=== PATIENT | male | born 1985 | race Caucasian/White ===

== ENCOUNTER 2017-06-24 15:21 | Emergency (ER) | payer OTHER ==
[~2017-06-24] VITALS: Ht 175.3 cm; Wt 83.4 kg
[~2017-06-24 15:21] MED LIST: ADVIL,NUPRIN,M200 MG PO; AZITHROMYCIN500 M1 PO; CYMBALTA60 MG PO; SUBOXONE 8 MG-1 EAC2 SL; TORADOL10 MG PO; XANAX0.5 MG PO; ZOLPIDEM TARTRA10 MG PO
[2017-06-24] MEDS ORDERED: PEPCID40 MG PO (16:50)
[2017-06-24] MEDS ORDERED: PREDNISONE20 MG PO (16:50)
[2017-06-24] MEDS ORDERED: BENADRYL50 MG PO (16:50)
[2017-06-24] MEDS ORDERED: EPIPEN ADU0.3 MG/0.3 IM (16:51)
[2017-06-24 17:51] VITALS: BP 137/90
== END 2017-06-24 17:53 | disposition home or self-care (01) ==
LOC: EME 15:21
DX: T63.441A Toxic effect of venom of bees, accidental (unintentional), initial encounter (principal); F32.9 Major depressive disorder, single episode, unspecified
CPT/HCPCS: 93005; 99281; 99285; J1200; J2930; J7030; S0028